=== PATIENT | female | born 1995 | race Hispanic/Latino ===

== ENCOUNTER 2017-07-09 22:31 | Emergency (ER) | payer OTHER ==
[~2017-07-09] VITALS: Ht 149.9 cm; Wt 60.9 kg
[2017-07-10 03:32] LABS: BASO # 0.1 K/mm3 (0.0-0.2); BASO % 0.8 % (0.0-1.0); EOS # 0.3 K/mm3 (0.0-0.50); LARGE UNSTAINED CELL # 0.2 K/mm3 (0.0-0.4); LARGE UNSTAINED CELL % 2.1 % (0.0-4.0); LYMPH # 3.7 K/mm3 (1.5-6.5); LYMPH % 35.6 % (24.0-44.0); MEAN CORPUSCULAR HEMOGLOBIN 30.8 pg (27.0-33.0); MEAN CORPUSCULAR HGB CONC 34.2 g/dl (32.0-36.5); MEAN CORPUSCULAR VOLUME 89.9 fl (80.0-96.0); MONO # 0.4 K/mm3 (0.0-0.8); MONO % 4.1 % (0.0-5.0); NEUTROPHILS # 5.6 K/mm3 (1.8-7.7); NEUTROPHILS % 54.5 % (36.0-66.0); PLATELET COUNT, AUTOMATED 409 k/mm3 (150-450); RED CELL DISTRIBUTION WIDTH 13.2 % (11.5-14.5); WHITE BLOOD COUNT 10.3 K/mm3 (4.0-10.0)
[2017-07-10 06:29] VITALS: BP 114/57
--- NOTE | 2017-07-10 06:50 | REPUSA ---
CLINICAL HISTORY: Vaginal bleeding. TECHNIQUE: Endovaginal ultrasound of the pelvis was performed. FINDINGS: The uterus is normal in size measuring 7.8x4.1x5.9 cm. There is an intrauterine gestational sac. Mean gestational sac diameter is 11.8 mm. This corresponds to an estimated gestational age of 6 weeks. [place] rump length measures 4.5 mm. This corresponds to an estimated gestation age of 6 weeks and one day. Absent cardiac activity. Absent motion. The right ovary measures 3.7x1.7x2.9 cm. There is a right ovarian corpus luteum cyst measuring 1.3 cm . The left ovary measures 2.5x1.9x2.6 cm. IMPRESSION: Single, intrauterine . No cardiac activity is noted. Right ovarian corpus luteum cyst.
== END 2017-07-10 06:41 | disposition home or self-care (01) ==
LOC: M ED 22:31
DX: O20.0 Threatened abortion (principal); Z3A.08 8 weeks gestation of pregnancy

== ENCOUNTER 2018-02-25 21:17 | Emergency (ER) | payer OTHER | END 2018-02-26 01:03 | disposition home or self-care (01) | LOC: M ED 21:17 | DX: K64.8 Other hemorrhoids (principal) | CPT/HCPCS: 99284 ==

== ENCOUNTER 2018-12-08 10:36 | Inpatient (IN) | payer OTHER ==
[2018-12-08] VITALS (53 sets, daily range): BP systolic 109–146; BP diastolic 53–88
[~2018-12-08] VITALS: Ht 147.3 cm; Wt 68.2 kg
[~2018-12-08 10:36] MED LIST: COLA100C5 PO
[2018-12-08] MEDS ORDERED: TUMS500C PO (10:51)
[2018-12-08] MEDS ORDERED: PENICILLIN G POTASSIUM IV 5 MU in D5W MINI-BAG PLUS 100 ML IV ONE (12:00)
[2018-12-08] MEDS ORDERED: LACTATED RINGER'S 1000 ML IV ONE (12:00)
[2018-12-08] MEDS: LR 1,000 ML IV SCH ×3 (12:07→16:53)
[2018-12-08] MEDS ORDERED: CALCIUM CARBONATE 500 MG CHEW U/D PO PRN (12:15)
[2018-12-08 12:33] LABS: HEMATOCRIT 32.8 % (36.0-47.0); HEMOGLOBIN 10.7 g/dl (12.0-15.5); MEAN CORPUSCULAR HEMOGLOBIN 25.7 pg (27.0-33.0); MEAN CORPUSCULAR HGB CONC 32.6 g/dl (32.0-36.5); MEAN CORPUSCULAR VOLUME 78.8 fl (80.0-96.0); PLATELET COUNT, AUTOMATED 470 10^3/uL (150-450); RED BLOOD COUNT 4.16 10^6/uL (4.00-5.40); WHITE BLOOD COUNT 19.6 10^3/uL (4.0-10.0)
[2018-12-08] MEDS ORDERED: FENTANYL 2MCG/ML ROPIVACAINE 0.2% IN 0.9% NACL 100ML IVBAG As Ordered ONE (13:50)
[2018-12-08] MEDS ORDERED: REFRIGERATOR IV KEYS XX PRN ×2 (14:00→14:30)
[2018-12-08] MEDS ORDERED: FENTANYL/ROPIVACAINE/NACL BAG 100 ML EPIDURAL SCH ×2 (14:00→14:30)
[2018-12-08] MEDS ORDERED: EPIDURAL COMMENT XX SCH (14:30)
[2018-12-08] MEDS ORDERED: NALOXONE INJ 0.4 MG/1 ML VIAL (J2310) IV PRN (14:30)
[2018-12-08] MEDS ORDERED: diphenhydrAMINE INJ 50MG/ML VIAL (J1200) IV PRN (14:30)
[2018-12-08] MEDS ORDERED: ONDANSETRON 4MG/2ML VIAL (J2405) IV PRN (14:30)
[2018-12-08] MEDS ORDERED: EPIDURAL/PCA KEYS XX PRN (14:30)
[2018-12-08] MEDS ORDERED: ePHEDrine SULFATE 25 MG/5 ML(5MG/ML) SYRINGE IV PRN (14:30)
[2018-12-08] MEDS ORDERED: LACTATED RINGER'S 1000 ML IV PRN (14:30)
[2018-12-08] MEDS ORDERED: OXYTOCIN 30 UNITS IN 0.9% NaCl 500ML IV BAG (J2590) As Ordered ONE (15:46)
[2018-12-08] MEDS ORDERED: PENICILLIN G POTASSIUM IV 2.5 MU in APPROPRIATE DILUENT 1 EA IV SCH (16:00)
--- NOTE | 2018-12-08 16:17 | NUR ---
1600 hrs review progress has epidural category 1 with minimal baseline variability, post epidural . Planned arom thick meconium particulate -3 station thick stretch 5-6 cm Plan review contractions plan to augment if contractions fall off safe to proceed.
[2018-12-09] VITALS (11 sets, daily range): BP systolic 95–161; BP diastolic 53–72
--- NOTE | 2018-12-09 01:29 | NUR ---
121 am this patient was fully dilated and refused to push Prior to this the patients mother indicated we are trying to kill the baby and her daughter. With per diem interpreter patients mother was unreasonable not supported to daughter and demanded cs stating that grandmother in childbirth. With per diem interpreter on phone we attempted to review risks benefits however patient and mother were no interested in hearing anything We notified neonatology and anesthesia Patient signed consent form
[2018-12-09] MEDS ORDERED: BICITRA 30ML SOLN UDC PO ONE (01:30)
[2018-12-09] MEDS ORDERED: BUPIVACAINE HCL 0.25% 10 ML VIAL SC ONE (01:45)
[2018-12-09] MEDS ORDERED: AZITHROMYCIN INJ 500 MG, VIAL MATE ADAPTER 1 EACH in D5W 250 ML IV ONE (01:45)
[2018-12-09] MEDS ORDERED: ACETAMINOPHEN 650 MG SUPP PR ONE (01:45)
[2018-12-09] MEDS ORDERED: BUPIVACAINE HCL 0.25% 10 ML VIAL As Ordered ONE (01:48)
[2018-12-09] MEDS ORDERED: ceFAZolin 2 GM/D5W 50 ML IV BAG (J0690 PER 500MG) As Ordered ONE (01:48)
[2018-12-09] MEDS ORDERED: ACETAMINOPHEN 650 MG SUPP As Ordered ONE (01:48)
[2018-12-09] MEDS ORDERED: BICITRA 30ML SOLN UDC As Ordered ONE (01:49)
[2018-12-09] MEDS ORDERED: OXYTOCIN INJ 10 UNITS/ML VIAL (J2590) As Ordered ONE ×3 (01:54→08:20)
[2018-12-09] MEDS ORDERED: BUPIVACAINE/DEXTROSE 0.75% 2 ML AMP As Ordered ONE (01:54)
[2018-12-09] MEDS ORDERED: MORPHINE PRES-FREE INJ 10 MG/10 ML VIAL (J2274) As Ordered ONE (01:54)
[2018-12-09] MEDS ORDERED: NALBUPHINE HCL 10 MG/ML AMP (J2300) IV PRN (02:12)
[2018-12-09] MEDS ORDERED: METOCLOPRAMIDE INJ 10MG/2ML VIAL (J2765) IV PRN (02:12)
[2018-12-09] MEDS ORDERED: ONDANSETRON 4MG/2ML VIAL (J2405) IV PRN ×2 (02:12→03:30)
[2018-12-09] MEDS ORDERED: diphenhydrAMINE INJ 50MG/ML VIAL (J1200) IV PRN (02:12)
[2018-12-09] MEDS ORDERED: NALOXONE INJ 0.4 MG/1 ML VIAL (J2310) IV PRN ×2 (02:12)
[2018-12-09] MEDS ORDERED: PHENYLephrine HCL 500 MCG/5 ML (100MCG/ML) SYRINGE (J2370) As Ordered ONE (02:27)
[2018-12-09] MEDS ORDERED: dexameTHASONE 4 MG/ML 1ML VIAL (J1100) As Ordered ONE (02:29)
[2018-12-09] MEDS ORDERED: ONDANSETRON 4MG/2ML VIAL (J2405) As Ordered ONE (02:29)
[2018-12-09 02:43] LABS: CORD GAS ABE A -6.9; CORD GAS ABE V -8.9; CORD GAS HCO3 A 20.6 MEQ/L; CORD GAS HCO3 V 16.4 MEQ/L; CORD GAS O2 SAT V 38.2 %; CORD GAS PCO2 A 48.7 mmHg; CORD GAS PCO2 V 33.8 mmHg; CORD GAS PH A 7.244 UNITS; CORD GAS PH V 7.303 UNITS; CORD GAS PO2 V 21.3 mmHg; CORD GAS SBC A 17.2 MEQ/L; CORD GAS SBC V 16.2 MEQ/L; CORD GAS TCO2 A 22.1 MEQ/L; CORD GAS TCO2 V 17.4 MEQ/L
[2018-12-09] MEDS ORDERED: KETOROLAC 60 MG/2 ML VIAL (J1885) As Ordered ONE (02:46)
[2018-12-09] MEDS ORDERED: OXYTOCIN DRIP 30 UNITS in APPROPRIATE DILUENT 1 EA IV SCH (03:11)
[2018-12-09] MEDS ORDERED: RHOGAM 300 MCG (1500 IU) INJ (J2790) IM SCH (03:15)
[2018-12-09] MEDS ORDERED: MOM 30ML SUSPENSION UDC PO PRN (03:15)
[2018-12-09] MEDS ORDERED: DOCUSATE SODIUM 100 MG CAP PO PRN (03:15)
[2018-12-09] MEDS ORDERED: PERCOCET 5MG/325MG TAB PO PRN ×2 (03:15)
[2018-12-09] MEDS ORDERED: ANUSOL HC CREAM 30GM TOP PRN (03:15)
[2018-12-09] MEDS ORDERED: OXYTOCIN INJ 10 UNITS/ML VIAL (J2590) IV ONE (03:15)
[2018-12-09] MEDS ORDERED: MEASLES,MUMPS,RUBELLA VACCINE INJ (MMR-II) (90707) SC SCH (03:15)
[2018-12-09] MEDS ORDERED: METHYLERGONOVINE MALEATE 0.2 MG TAB PO PRN (03:15)
[2018-12-09] MEDS ORDERED: NORCO, ANEXSIA 5/325MG TABLET (HYDROcodone/ACETAMINOPHEN) PO PRN (03:30)
[2018-12-09] MEDS ORDERED: fentaNYL 100 MCG/2 ML INJECTION (J3010) IV PRN (03:30)
[2018-12-09] MEDS: LR 1,000 ML IV SCH (06:50)
[2018-12-09] MEDS: PRENATAL VITAMINS CHEWABLE TABLET PO SCH (09:00)
[2018-12-09] MEDS: KETOROLAC 30 MG/ML VIAL (J1885) IV SCH ×3 (09:45→22:11)
--- NOTE | 2018-12-09 17:01 | HPE ---
DATE OF ADMISSION: 12/08/2018 23-year-old, 2, para 0, abortus 1, LMP 02/24/2018, EDC 12/11/2018 at 41 weeks gestation with a history of contractions every 4 minutes apart. GBS positive. No spontaneous rupture of membranes. Risk factors is she suffers from migraines and she had a positive chlamydia with test of cure negative. Labs are O+, HIV negative, hepatitis negative, RPR negative, rubella immune. Varicella immune. Pap with LGSIL. Urine was negative. Gonorrhea was negative. Chlamydia was positive, test of cure negative. Initial 1-hour glucose of 142, 3-hour glucose 97/125/93/98. On examination the patient appears to be in distress. Symphysis fundus height is 40, vertex 3-4 cm, -2, intact membranes, 0 station to -1, category one strip with no decelerations. Her urine is 1.005, pH 8, negative. Initial blood pressure was 145/67, respirations are 18, pulse is 83 and temperature is 99.3, repeat of her blood pressure was 146/68 and her pulse was 91. Her hemoglobin is 10.7, hematocrit 32.8 and platelets are 470. Her WBC is 19.6. The rest of the examination is unremarkable. She has a category one strip with accelerations, no tachycardia, moderate variability. She is normocephalic, atraumatic. Neck full range of motion. Pupils equal and reactive to light. No sinus issues. No upper respiratory issues. Chest is clear bilaterally to bases. No wheezes or rhonchi. No CVA tenderness. She has no rashes, lesions or pruritus. No arthralgia or myalgia. No complaint of joint pain. No complaint of cough, wheeze, shortness of breath, dyspnea on exertion or nasal drip. She has no bleeding. Neurologically complete. No incontinency, urgency, or frequency. No nausea, vomiting, diarrhea or constipation. No diabetic issues. 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 Medical and surgical unremarkable. Family history is noncontributory. 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 She does not smoke, drink, or abuse drugs. No domestic violence. Has good support systems around her. We discussed the consent for vaginal delivery which includes delivery through the vagina with possible assistance of forceps or vacuum devices if needed for maternal or indications. Forceps and vacuum devices again assist with a vaginal delivery when normal pushing efforts cannot achieve delivery on their own or when delivery is needed in an emergency for baby's well-being. Medications may be used to induce or augment the labor in order to achieve vaginal delivery. An episiotomy may be required to help baby deliver vaginally. You can also require repair of any lacerations, tears of the vagina, vulva caused by delivery. In some cases emergencies can occur that require emergency section of delivery so quickly that there may not be time to do a formalized consent form. However, we will definitely before proceeding explain the procedure to you and discuss the risks and benefits and the delivery by section is through an incision in the abdomen and in some situations section is safer for the mother and the baby than continuing labor and our only performed for clinically indicated reasons. Risk of vaginal delivery include but are not limited to bleeding, infection, injury to the vagina, pelvic structures, injury to baby, damage to the uterus, reaction to anesthesia, uterine rupture, remote risk of hysterectomy, remote risk of blood transfusion and remote risk of hemorrhage. There can also be issues with the baby and there could be scratches or bruising on the head, hematomas or intracranial bleed. Our main concern at the present time is her elevated white count, her slightly elevated temperature, her GBS positivity, and presently she is 4 cm, but having good active contractions. Our criteria for chorioamnionitis is tachycardia, elevated maternal temperature, and elevated white count. At the present time there is no indication to augment or move to an alternative method of delivery. The patient expressed understanding of these issues and is anxious to go ahead with delivery which she expressed a wish for analgesia and we are trying to encourage her that an epidural would be more advisable than IV pain medications in that the IV pain medications can affect baby in the form of bradycardia and inability to distinguish the tachycardia for chorioamnionitis from the effects of the IV medications. The patient will take this under advisement and we are going to proceed with IV hydration and monitoring active contractions. All questions were answered.
[2018-12-10 02:00] VITALS: BP 109/52
--- NOTE | 2018-12-10 05:01 | IPNPDOC ---
Text Note Date of Service The patient was seen on 12/10/18. NOTE POD1 PCD by Dr Ortega States feeling well, pain controlled with prescribed meds. Baby bonding and feeding well. No heavy VB. Lochia slowing. Ambulatory X1. Tolerating PO without issues. Voiding w/o issue. VSSAF NAD A&O RRR CTAB LE no C/C/E Ut at U-2, firm UO appropriate overnight CBC pending later this AM a/p: Doing well. Cont routine postop care. D/C likely tomorrow. Scheduled Motrin and PRN Percocet. Ambulate. Sessions VS,Kathy, I+O VSKathy, I+O Vital Signs Date Time Temp Pulse Resp B/P (MAP) Pulse Ox O2 Delivery O2 Flow Rate FiO2 12/10/18 02:00 99.1 89 17 109/52 (71) 12/09/18 22:00 97 I&O- Last 24 Hours up to 6 AM 12/10/18 06:00 Output Total 1275 ml Balance -1275 ml SESSIONS,SAUD Hunter MD Dec 10, 2018 05:01
[2018-12-10] MEDS: IBUPROFEN 800 MG TAB PO SCH ×3 (05:34→21:24)
[2018-12-10 05:59] VITALS: BP 113/56
[2018-12-10 07:04] LABS: HEMATOCRIT 23.9 % (36.0-47.0); MEAN CORPUSCULAR HEMOGLOBIN 25.6 pg (27.0-33.0); MEAN CORPUSCULAR HGB CONC 31.8 g/dl (32.0-36.5); MEAN CORPUSCULAR VOLUME 80.5 fl (80.0-96.0); PLATELET COUNT, AUTOMATED 344 10^3/uL (150-450); RED BLOOD COUNT 2.97 10^6/uL (4.00-5.40); WHITE BLOOD COUNT 17.5 10^3/uL (4.0-10.0)
[2018-12-10 07:10] LABS: HEMOGLOBIN 7.6 g/dl (12.0-15.5)
[2018-12-10] MEDS: PRENATAL VITAMINS CHEWABLE TABLET PO SCH (08:17)
[2018-12-10 10:00] VITALS: BP 109/58
--- NOTE | 2018-12-10 13:59 | RO ---
DATE OF PROCEDURE: 12/08/2018 This lady is a 1, now para 1, was admitted in spontaneous labor with meconium stain at artificial rupture of membranes (AROM). She got fully dilated, however, failed to descend and failed to push; and after an hour of attempting to push with a category one strip, the patient requested to have a section. After adequate consultation with the mother and father about the risks and benefits of section, we had a primary section with the preoperative, the postoperative was primary section. PREOPERATIVE DIAGNOSIS: failure to descend failure to push POSTOPERATIVE DIAGNOSIS: failure to descend failure to push OPERATION PROPOSED: Primary section. OPERATION PERFORMED: Primary section. ANESTHESIA: Was spinal ESTIMATED BLOOD LOSS: 400 mL. SURGEON: Turner Ortega MD CONTROLLED AREA CHECKER: Sonia Badillo MD, for retraction, extraction, and emergency surgery, and visualization. DESCRIPTION OF PROCEDURE: After adequate time-out, prepped and draped in the supine position, Murphy catheter in the bladder draining clear urine, acetaminophen suppository 1300 mg per rectum, sequentials on board, appropriate preoperative consultation, and neonatology present, we did a low transverse incision into the skin passing through abdominal layers securing hemostasis. Opening peritoneal cavity, bladder reflected well down anteriorly. Incision into the uterus. Meconium was noted. The baby was deep in the pelvis, almost at the introitus; and we needed to in order to extract the fetus, we required to do the shoe-horn technique by placing one blade of the forceps in and elevating the head out of the pelvis. We then had a delivery of a livebirth female infant weighing 3110 grams, 6 pounds 14 ounces, scores of 9 and 9 at 1 and 5 minutes, respectively. Arterial pH was 7.24, base excess -6.9, venous pH 7.30, base excess -8.9. The placenta was manually removed. Three-vessels of the cord membranes and tissues was intact. He was stained with meconium. The uterus contracted well down on Pitocin. We swept the uterine cavity. No evidence of debris. The lower segment was oversewn in the usual fashion in two layers, imbricating the second layer and then reperitonealization was performed. With instrument and pad count correct, both ovaries and tubes appeared to be normal, the abdomen was then closed, running stitch for the peritoneum, same for the fascia, interrupted for subcutaneous, Dexon to the skin, Marcaine 0.25% 10 mL to skin, and Telfa; and the patient was taken back to recovery in good condition. MICAELAD
[2018-12-10 14:00] VITALS: BP 118/56
[2018-12-10 18:15] VITALS: BP 108/54
[2018-12-10 22:40] VITALS: BP 116/59
[2018-12-11 02:22] VITALS: BP 108/53
[2018-12-11] MEDS: IBUPROFEN 800 MG TAB PO SCH ×2 (05:43→12:46)
[2018-12-11 05:57] VITALS: BP 117/57
[2018-12-11] MEDS: PRENATAL VITAMINS CHEWABLE TABLET PO SCH (09:28)
[2018-12-11] MEDS ORDERED: PRENTAB9 PO (12:27)
[2018-12-11] MEDS ORDERED: IBUP-1114 PO (12:28)
[2018-12-11] MEDS ORDERED: MOM30SS PO (12:29)
[2018-12-11] MEDS ORDERED: COLA100C5 PO (12:29)
[2018-12-11] MEDS ORDERED: ANUS2.5C2 TOP (12:30)
[2018-12-11] MEDS ORDERED: OXYC1TAB23 PO ×2 (12:31→12:32)
--- NOTE | 2018-12-13 15:06 | DSES ---
DATE OF ADMISSION: 12/08/2018 DATE OF DISCHARGE: 12/11/2018 This is a 23-year-old 2, para 1 admitted in spontaneous labor, had a primary section for failure to descend, live female , 6 pounds 14 ounces, 3110 grams. scores of 9 and 9 at 1 and 5 minutes, respectively. Arterial pH 7.24, base excess -6.9. Venous pH 7.3, base excess -8.9. On her second day, discussion in regard to phlebitis, cystitis, mastitis, endometritis, cellulitis, diet, exercise, pain management, perineal/breast/wound care. Plan to give her medications on discharge. Her admitting hemoglobin was 10.7, hematocrit 32.8 and platelets were 470. Discharge hemoglobin 7.6, hematocrit 23.9 and platelets were 344. She is asymptomatic. Her vital signs on discharge were blood pressure 117/57, respirations 16, pulse 87, temperature is 98.2. She is normocephalic, atraumatic. Neck: Full range of motion. Pupils equal and reactive to light. Distal pulses symmetric. No evidence of DVT, PE or superficial phlebitis. Chest is clear bilaterally bases. No wheezes or rhonchi. No CVA tenderness. Abdomen soft. Uterus two below. Lochia is moderate. Four quadrant bowel sounds. Incision is clean and dry. She has no rashes, lesions or pruritus. No arthralgia, myalgia. No complaint of cough, wheeze, shortness of breath or dyspnea on exertion. No nausea, vomiting, diarrhea or constipation. No incontinence, urgency or frequency. The patient has good support at home. All questions were answered. Discharge followup in 2 weeks for incision check and 6 weeks for checkup at [facility].
== END 2018-12-11 13:20 | disposition home or self-care (01) | DRG 772 ==
LOC: M LDI 10:36 → M OBS 12-09 05:00
PROVIDERS: ADMIT Obstetrics & Gynecology; ATTEND Obstetrics & Gynecology
PROC: 10D00Z1 Extraction of Products of Conception, Low, Open Approach (ICD-10-PCS; principal; 2018-12-08)
DX: O32.4XX0 Maternal care for high head at term, not applicable or unspecified (principal); O98.32 Other infections with a predominantly sexual mode of transmission complicating childbirth; Z37.0 Single live birth; Z3A.41 41 weeks gestation of pregnancy; O99.820 Streptococcus B carrier state complicating pregnancy; A56.8 Sexually transmitted chlamydial infection of other sites; O48.0 Post-term pregnancy

== ENCOUNTER 2019-10-31 19:05 | Emergency (ER) | payer MEDICAID, OTHER ==
[~2019-10-31] VITALS: Ht 147.3 cm; Wt 67.3 kg
[~2019-10-31 19:05] MED LIST changes: +ANUS2.5C2 TOP; +IBUP-1114 PO; +MOM30SS PO; +OXYC1TAB23 PO; +PRENTAB9 PO; +TUMS500C PO
[2019-10-31 19:56] LABS: INFLUENZA A AMPLIFICATION NEGATIVE (NEGATIVE); INFLUENZA B AMPLIFICATION POSITIVE (NEGATIVE)
[2019-10-31] MEDS ORDERED: IBUPROFEN 600 MG TAB PO ONE (20:00)
[2019-10-31] MEDS ORDERED: NS 1,000 ML IV ONE (20:00)
[2019-10-31 20:46] LABS: BASO # 0.1 10^3/uL (0.0-0.2); BASO % 1.2 % (0.0-1.0); EOS # 0.1 10^3/uL (0.0-0.5); EOS % 0.9 % (0.0-3.0); HEMATOCRIT 37.5 % (36.0-47.0); HEMOGLOBIN 13.2 g/dl (12.0-15.5); LYMPH # 0.9 10^3/uL (1.5-5.0); LYMPH % 11.7 % (24.0-44.0); MEAN CORPUSCULAR HEMOGLOBIN 29.7 pg (27.0-33.0); MEAN CORPUSCULAR HGB CONC 35.2 g/dl (32.0-36.5); MEAN CORPUSCULAR VOLUME 84.5 fl (80.0-96.0); MONO # 0.9 10^3/uL (0.0-0.8); MONO % 11.5 % (0.0-5.0); NEUTROPHILS # 5.7 10^3/uL (1.5-8.5); NEUTROPHILS % 73.9 % (36.0-66.0); PLATELET COUNT, AUTOMATED 434 10^3/uL (150-450); RED BLOOD COUNT 4.44 10^6/uL (4.00-5.40); WHITE BLOOD COUNT 7.8 10^3/uL (4.0-10.0)
[2019-10-31 21:21] VITALS: BP 122/65
[2019-10-31 21:45] LABS: ALBUMIN 3.7 GM/DL (3.2-5.2); ALT/SGPT 52 U/L (12-78); BILIRUBIN,DIRECT 0.2 MG/DL (0.0-0.2); BILIRUBIN,TOTAL 0.5 MG/DL (0.2-1.0); BLOOD UREA NITROGEN 8 MG/DL (7-18); CALCIUM LEVEL 9.3 MG/DL (8.5-10.1); CARBON DIOXIDE LEVEL 22 MEQ/L (21-32); CHLORIDE LEVEL 107 MEQ/L (98-107); CREATININE FOR GFR 0.66 MG/DL (0.55-1.30); GLOMERULAR FILTRATION RATE > 60.0 (>60); GLUCOSE, FASTING 94 MG/DL (70-100); HCG, SERUM QUANTITATIVE 1326 MIU/ML; LIPASE 53 U/L (73-393); POTASSIUM SERUM 3.8 MEQ/L (3.5-5.1); SODIUM LEVEL 138 MEQ/L (136-145); TOTAL PROTEIN 7.5 GM/DL (6.4-8.2)
[2019-10-31] MEDS ORDERED: ACETAMINOPHEN TAB 650MG DOSE (2X325MG) PO ONE (21:45)
[2019-10-31] MEDS ORDERED: OSEL75CA PO (22:23)
[2019-10-31] MEDS ORDERED: OSELTAMIVIR PHOSPHATE 75 MG CAP (TAMIFLU) PO ONE (22:30)
== END 2019-10-31 22:54 | disposition home or self-care (01) ==
LOC: M ED 19:05
DX: O98.519 Other viral diseases complicating pregnancy, unspecified trimester (principal); O99.330 Smoking (tobacco) complicating pregnancy, unspecified trimester; Z3A.00 Weeks of gestation of pregnancy not specified

== ENCOUNTER 2021-01-01 16:52 | Emergency (ER) | payer MEDICAID, OTHER ==
[~2021-01-01] VITALS: Ht 147.3 cm; Wt 62.7 kg
[~2021-01-01 16:52] MED LIST changes: +OSEL75CA PO
[2021-01-01] MEDS ORDERED: ONDANSETRON 4MG/2ML VIAL IV ONE (17:55)
[2021-01-01] MEDS ORDERED: NS 1,000 ML IV ONE (17:55)
[2021-01-01 18:14] LABS: BASO # 0.1 10^3/uL (0.0-0.2); BASO % 0.7 % (0.0-1.0); EOS # 0.1 10^3/uL (0.0-0.5); EOS % 0.7 % (0.0-3.0); HEMATOCRIT 40.7 % (36.0-47.0); HEMOGLOBIN 13.9 g/dl (12.0-15.5); LYMPH # 2.8 10^3/uL (1.5-5.0); LYMPH % 27.6 % (24.0-44.0); MEAN CORPUSCULAR HEMOGLOBIN 28.8 pg (27.0-33.0); MEAN CORPUSCULAR HGB CONC 34.2 g/dl (32.0-36.5); MEAN CORPUSCULAR VOLUME 84.4 fl (80.0-96.0); MONO # 0.7 10^3/uL (0.0-0.8); MONO % 6.9 % (2.0-8.0); NEUTROPHILS # 6.6 10^3/uL (1.5-8.5); NEUTROPHILS % 63.7 % (36.0-66.0); PLATELET COUNT, AUTOMATED 396 10^3/uL (150-450); RED BLOOD COUNT 4.82 10^6/uL (4.00-5.40); WHITE BLOOD COUNT 10.3 10^3/uL (4.0-10.0)
[2021-01-01 19:13] LABS: ALBUMIN 4.1 GM/DL (3.2-5.2); BILIRUBIN,DIRECT 0.3 MG/DL (0.0-0.2); BILIRUBIN,TOTAL 0.9 MG/DL (0.2-1.0); TOTAL PROTEIN 8.2 GM/DL (6.4-8.2)
[2021-01-01] MEDS ORDERED: REGL10TA6 PO (20:31)
[2021-01-01 20:41] VITALS: BP 120/65
== END 2021-01-01 20:45 | disposition home or self-care (01) ==
LOC: M ED 16:52
DX: O21.9 Vomiting of pregnancy, unspecified (principal); O99.611 Diseases of the digestive system complicating pregnancy, first trimester; O99.331 Smoking (tobacco) complicating pregnancy, first trimester; Z3A.01 Less than 8 weeks gestation of pregnancy
CPT/HCPCS: 76801; 80047; 80076; 81001; 83690; 84702; 85025; 86901; 96361; 96374; 99284; J2405

== ENCOUNTER → 2021-01-17 | Outpatient (CLI) | payer SELFPAY ==
[~2021-01-17] MED LIST changes: +REGL10TA6 PO
== END ==
LOC: M LABSMTC 13:27
PROVIDERS: ATTEND Pediatrics
DX: Z20.822 Contact with and (suspected) exposure to COVID-19 (principal)

== ENCOUNTER → 2021-01-31 | Outpatient (CLI) | payer SELFPAY | LOC: M LABSMTC 14:27 | PROVIDERS: ATTEND Pediatrics | DX: Z20.822 Contact with and (suspected) exposure to COVID-19 (principal) ==